=== PATIENT | female | born 1940 | race Caucasian/White ===

== ENCOUNTER 2016-06-16 18:56 | Emergency (ER) | payer MEDICARE | END 2016-06-16 21:50 | disposition home or self-care (01) | LOC: ER1 18:56 | DX: S20.212A Contusion of left front wall of thorax, initial encounter (principal); I10 Essential (primary) hypertension; E11.9 Type 2 diabetes mellitus without complications; J44.9 Chronic obstructive pulmonary disease, unspecified; Z85.3 Personal history of malignant neoplasm of breast; Z90.12 Acquired absence of left breast and nipple; Z88.8 Allergy status to other drugs, medicaments and biological substances; W17.89XA Other fall from one level to another, initial encounter | CPT/HCPCS: 71101; 99284 ==

== ENCOUNTER → 2016-07-04 | Outpatient (CLI) | payer MEDICARE ==
[2016-07-04 11:05] LABS: HEMOGLOBIN 12.1 gm/dl (12.3-15.3); RED BLOOD COUNT 3.69 M/UL (4.00-5.10); WHITE BLOOD COUNT 4.2 K/UL (4.5-11.0)
[2016-07-04 11:12] LABS: BUN/CREATININE RATIO 26 (0-10)
== END ==
LOC: LAB 10:18
PROVIDERS: Family Medicine
DX: E11.9 Type 2 diabetes mellitus without complications (principal); E78.5 Hyperlipidemia, unspecified; I10 Essential (primary) hypertension; E55.9 Vitamin D deficiency, unspecified
CPT/HCPCS: 36415; 80053; 80061; 83036; 84439; 84443; 84681; 85027

== ENCOUNTER 2020-03-09 00:46 | Observation (INO) | payer MEDICARE, OTHER ==
[~2020-03-09] VITALS: Ht 162.6 cm; Wt 108.9 kg
[~2020-03-09 00:46] MED LIST: ASPIRIN EC81 MG PO; AUGMENTIN 875-1 EACH PO; BENTYL 20MG TAB20 MG PO; BYDUREON P2 MG/0.65 SQ; CARAFATE1 GM PO; ENULOSE10 GM/15 M PO; FLONASE 0.05% N16 GM; GLUCOTROL5 MG PO; HYDROCHLOROTH12.5 M1 PO; HYDROCHLOROTHIA25 MG PO; HYDROXYZINE PAM25 MG PO; JANUVIA100 MG PO; K-DUR TAB 20 M20 MEQ PO; LASIX20 MG PO; LEVAQUIN500 MG PO; LIPITOR TAB 2020 MG PO; LIPITOR40 MG PO; LISINOPRIL20 MG PO; LISINOPRIL40 MG PO; LORATADINE10 MG PO; MACROBID 100 M100 MG PO; METFORMIN HCL1000 MG PO; MONTELUKAST SOD10 MG PO; NITROGLYCERIN0.4 MG SL; NORVASC 5 MG TAB5 MG PO; OMEPRAZOLE40 MG PO; PYRIDIUM100 MG PO; SIMVASTATIN40 MG PO; SINGULAIR10 MG PO; TESSALON PERLE100 MG PO; VENTOLIN HFA 66.7 GM INH; ZITHROMAX250 MG PO; ZOFRAN ODT 4 MG4 MG SL; ZOFRAN4 MG PO; ZYRTEC10 MG PO
[2020-03-09 02:19] LABS: HEMOGLOBIN 11.1 gm/dl (12.3-15.3); RED BLOOD COUNT 3.37 M/UL (4.00-5.10); WHITE BLOOD COUNT 5.5 K/UL (4.5-11.0)
[2020-03-09 02:52] LABS: BUN/CREATININE RATIO 19 (0-10)
[2020-03-09] MEDS ORDERED: SPIRONOLACTONE50 MG PO (10:10)
[2020-03-09] MEDS ORDERED: INDERAL TAB 1010 MG PO (10:11)
[2020-03-09] MEDS ORDERED: FUROSEMIDE40 MG PO (10:20)
[2020-03-10 06:03] LABS: RED BLOOD COUNT 2.96 M/UL (4.00-5.10); WHITE BLOOD COUNT 4.1 K/UL (4.5-11.0)
[2020-03-10] MEDS ORDERED: OMNICEF 300 MG300 MG PO (11:12)
== END 2020-03-10 16:34 | disposition home or self-care (01) ==
LOC: ER1 00:46 → CDU 05:14 → M/S 16:20
PROVIDERS: Family Medicine; Internal Medicine; ADMIT Internal Medicine
DX: I11.0 Hypertensive heart disease with heart failure (principal); I50.31 Acute diastolic (congestive) heart failure; J18.9 Pneumonia, unspecified organism; D61.818 Other pancytopenia; E11.9 Type 2 diabetes mellitus without complications; E78.5 Hyperlipidemia, unspecified; D69.6 Thrombocytopenia, unspecified; D64.9 Anemia, unspecified; E66.9 Obesity, unspecified; Z20.822 Contact with and (suspected) exposure to COVID-19
CPT/HCPCS: ECHO; 70450; 71045; 73560; 80053; 80202; 80307; 81001; 82140; 82550; 82553; 84484; 85025; 86140; 87040; 93005; 93306; 96365; 96366; 96368; 96372; 96375; 96376; 99285; G0378; J1650; J2405; J2543; J3370; J7030; J7070; U0002

== ENCOUNTER 2020-03-20 18:14 | Emergency (ER) | payer MEDICARE, OTHER ==
[~2020-03-20] VITALS: Ht 162.6 cm; Wt 98.9 kg
[~2020-03-20 18:14] MED LIST changes: +FUROSEMIDE40 MG PO; +INDERAL TAB 1010 MG PO; +OMNICEF 300 MG300 MG PO; +SPIRONOLACTONE50 MG PO
[2020-03-20 21:02] LABS: HEMOGLOBIN 10.9 gm/dl (12.3-15.3); RED BLOOD COUNT 3.28 M/UL (4.00-5.10); WHITE BLOOD COUNT 7.7 K/UL (4.5-11.0)
[2020-03-20 21:26] LABS: BUN/CREATININE RATIO 16 (0-10)
[2020-03-21] MEDS ORDERED: AZITHROMYCIN500 MG PO (07:07)
== END 2020-03-21 08:43 | disposition home or self-care (01) ==
LOC: ER1 18:14
PROVIDERS: Emergency Medicine
DX: J18.9 Pneumonia, unspecified organism (principal); J44.9 Chronic obstructive pulmonary disease, unspecified; E11.9 Type 2 diabetes mellitus without complications; Z87.19 Personal history of other diseases of the digestive system
CPT/HCPCS: 70450; 71045; 80053; 82140; 82550; 82553; 83690; 83874; 83880; 84484; 85025; 85379; 93005; 99285; Q9967

== ENCOUNTER → 2020-07-03 | Outpatient (CLI) | payer MEDICARE, OTHER ==
[~2020-07-03] MED LIST changes: +AZITHROMYCIN500 MG PO
== END ==
LOC: KOH-I 10:11
DX: M25.562 Pain in left knee (principal); M17.12 Unilateral primary osteoarthritis, left knee
CPT/HCPCS: 73564

== ENCOUNTER 2020-08-08 00:36 | Emergency (ER) | payer MEDICARE, OTHER | END 2020-08-08 00:38 | disposition left against medical advice (07) | LOC: ER1 00:36 | DX: Z53.21 Procedure and treatment not carried out due to patient leaving prior to being seen by health care provider (principal) ==

== ENCOUNTER 2020-10-01 09:25 | Emergency (ER) | payer MEDICARE, OTHER ==
[2020-10-01 11:38] LABS: HEMOGLOBIN 11.8 gm/dl (12.3-15.3); RED BLOOD COUNT 3.6 M/UL (4.00-5.10); WHITE BLOOD COUNT 2.2 K/UL (4.5-11.0)
[2020-10-01 11:51] LABS: BUN/CREATININE RATIO 12 (0-10)
== END 2020-10-01 13:46 | disposition home or self-care (01) ==
LOC: ER1 09:25
PROVIDERS: Physician Assistant
DX: S80.02XA Contusion of left knee, initial encounter (principal); U07.1 COVID-19; D61.818 Other pancytopenia; M54.5 Low back pain; E11.9 Type 2 diabetes mellitus without complications; J44.9 Chronic obstructive pulmonary disease, unspecified; W07.XXXA Fall from chair, initial encounter; Y92.009 Unspecified place in unspecified non-institutional (private) residence as the place of occurrence of the external cause
CPT/HCPCS: 0240U; 71045; 72131; 73564; 80053; 82550; 82553; 83874; 84484; 85025; 93005; 99284

== ENCOUNTER → 2020-11-01 | Emergency (ER) | payer MEDICARE, OTHER | END | disposition home or self-care (01) | LOC: ER1 00:33 | DX: S01.511A Laceration without foreign body of lip, initial encounter (principal); S09.90XA Unspecified injury of head, initial encounter; I11.0 Hypertensive heart disease with heart failure; I50.9 Heart failure, unspecified; E11.9 Type 2 diabetes mellitus without complications; E78.5 Hyperlipidemia, unspecified; F17.210 Nicotine dependence, cigarettes, uncomplicated; Z85.3 Personal history of malignant neoplasm of breast; Z87.19 Personal history of other diseases of the digestive system | CPT/HCPCS: 70450; 72125; 99283 ==

== ENCOUNTER 2021-02-11 10:51 | Emergency (ER) | payer MEDICARE, OTHER ==
[2021-02-11 12:08] LABS: HEMOGLOBIN 11.8 gm/dl (12.3-15.3); RED BLOOD COUNT 3.47 M/UL (4.00-5.10); WHITE BLOOD COUNT 4.6 K/UL (4.5-11.0)
[2021-02-11 12:59] LABS: BUN/CREATININE RATIO 14 (0-10)
== END 2021-02-11 18:21 | disposition home or self-care (01) ==
LOC: ER1 10:51
PROVIDERS: Family Medicine
DX: K74.60 Unspecified cirrhosis of liver (principal); K75.81 Nonalcoholic steatohepatitis (NASH); H91.90 Unspecified hearing loss, unspecified ear; E11.9 Type 2 diabetes mellitus without complications; I11.0 Hypertensive heart disease with heart failure; I50.31 Acute diastolic (congestive) heart failure; E78.5 Hyperlipidemia, unspecified; E66.9 Obesity, unspecified; D64.9 Anemia, unspecified; Z87.01 Personal history of pneumonia (recurrent); Z85.3 Personal history of malignant neoplasm of breast; Z88.8 Allergy status to other drugs, medicaments and biological substances
CPT/HCPCS: 80053; 80307; 81001; 82140; 85025; 99285; G0480

== ENCOUNTER 2021-07-05 12:31 | Inpatient (IN) | payer MEDICARE, OTHER ==
[~2021-07-05] VITALS: Ht 162.6 cm; Wt 96.6 kg
[~2021-07-05 12:31] MED LIST changes: +BYDUREON BCISE SQ; -BYDUREON P2 MG/0.65 SQ; +DONEPEZIL HCL5 MG PO; +IBU600 MG PO; +PROAIR HFA8.5 GM INH; +PROPRANOLOL HCL10 MG PO; +[UNRECOGNIZED DRUG - OTHER] SQ
[2021-07-05 14:40] LABS: HEMOGLOBIN 12.3 gm/dl (12.3-15.3); RED BLOOD COUNT 3.48 M/UL (4.00-5.10); WHITE BLOOD COUNT 8.9 K/UL (4.5-11.0)
[2021-07-06 06:19] LABS: HEMOGLOBIN 10.5 gm/dl (12.3-15.3); RED BLOOD COUNT 2.97 M/UL (4.00-5.10); WHITE BLOOD COUNT 7.8 K/UL (4.5-11.0)
[2021-07-07 03:29] LABS: HEMOGLOBIN 9.9 gm/dl (12.3-15.3); RED BLOOD COUNT 2.82 M/UL (4.00-5.10)
[2021-07-07 03:32] LABS: WHITE BLOOD COUNT 5.6 K/UL (4.5-11.0)
[2021-07-08 01:29] LABS: ADENOVIRUS F 40/41 Not Detected (Negative); ASTROVIRUS Not Detected (Negative); CAMPYLOBACTER Not Detected (Negative); CRYPTOSPORIDIUM Not Detected (Negative); E.COLI 0157 Not Detected (Negative); ENTAMOEBA HISTOLYTICA Not Detected (Negative); ENTEROAGGREGATIVE E.COLI (EAEC Not Detected (Negative); ENTEROPATHOGENIC E.COLI (EPEC) Not Detected (Negative); ENTEROTOXIGENIC E.COLI (ETEC) Not Detected (Negative); GIARDIA LAMBLIA Not Detected (Negative); NOROVIRUS GI/GII Not Detected (Negative); PLESIOMONAS SHIGELLOIDES Not Detected (Negative); ROTOVIRUS A Not Detected (Negative); SALMONELLA Not Detected (Negative); SAPOVIRUS Not Detected (Negative); SHIG/ENTEROINVAS.ECOLI (EIEC) Not Detected (Negative); SHIGA-LIK TOX.PRO.E.COLI (STEC Not Detected (Negative); VIBRIO Not Detected (Negative); VIBRIO CHOLERAE Not Detected (Negative); YERSINIA ENTEROCOLITICA Not Detected (Negative)
[2021-07-08 04:20] LABS: HEMOGLOBIN 9.3 gm/dl (12.3-15.3); RED BLOOD COUNT 2.63 M/UL (4.00-5.10)
[2021-07-08 04:21] LABS: WHITE BLOOD COUNT 3.5 K/UL (4.5-11.0)
--- NOTE | 2021-07-08 08:59 | NUR ---
DR. GUTIERREZ on the floor reported all labs and result of ultrasound of the kidneys. acknowledged
--- NOTE | 2021-07-09 05:29 | NUR ---
Patient legal german Rodgers called for updates. She stated that if patient was discharged she would need to be transported via EMS.
[2021-07-09 06:44] LABS: HEMOGLOBIN 8.8 gm/dl (12.3-15.3); RED BLOOD COUNT 2.5 M/UL (4.00-5.10)
--- NOTE | 2021-07-10 00:19 | NUR ---
Late Entry 07/09/20212117: Legal German called to check on patient, updates provided to legal german. No concerns voiced at this time.
[2021-07-10 06:37] LABS: HEMOGLOBIN 8.9 gm/dl (12.3-15.3); RED BLOOD COUNT 2.49 M/UL (4.00-5.10); WHITE BLOOD COUNT 2.8 K/UL (4.5-11.0)
[2021-07-10] MEDS ORDERED: LEVOFLOXACIN500 MG PO (09:52)
[2021-07-10] MEDS ORDERED: XIFAXAN 550 MG550 MG PO (09:52)
--- NOTE | 2021-07-10 12:28 | NUR ---
report given to admitting nurse richard
--- NOTE | 2021-07-10 19:42 | NUR ---
Attempted to contact EMS for ETA for patient transport, no answer at this time.
--- NOTE | 2021-07-10 22:57 | NUR ---
Late Entry 1954: EMS [place] stated ETA of 30 minutes. Late Entry 2044: EMS [place]- [place] notified that EMS [facility] was backed up and unsure when they could transport patient. Ask to contact [facility]. Late Entry 2049: [facility] contacted, unable to transport patient. Corporate Sales Trainer notified, request to call [facility] back and await transport when available. Late Entry 2104: Spoke with EMS [facility] Captain Christian to transport patient due to [facility] unavailable, unable to give ETA but will transport when available. Late Entry 2107: Meg Denis, Legal Gaurdian notified of transportation issues at this time. Verbalized agreement and understanding, stated to call and notify her when patient is being transported. Meg is aware that at this time we do not have a ETA for EMS. No concerns voiced.
[2021-07-11 04:00] LABS: RED BLOOD COUNT 2.55 M/UL (4.00-5.10)
[2021-07-11 04:02] LABS: WHITE BLOOD COUNT 3.8 K/UL (4.5-11.0)
--- NOTE | 2021-07-11 04:30 | NUR ---
Spoke with Meg Rodgers, Legal Guardian, gave update, EMS not arrived at this time. No concerns voiced, voiced understanding.
--- NOTE | 2021-07-11 08:47 | NUR ---
EMS was awaiting and ready to transport patient unable to give po meds. patient awake and alert.
== END 2021-07-11 08:45 | disposition home health service (06) | DRG 432 ==
LOC: ER1 12:31 → CDU 17:52 → M/S 17:52
PROVIDERS: Emergency Medicine; Internal Medicine; Physician Assistant; ADMIT Internal Medicine
PROC: 30233R1 Transfusion of Nonautologous Platelets into Peripheral Vein, Percutaneous Approach (ICD-10-PCS; principal; 2021-07-05)
PROC: 0DJ Gastrointestinal System, Inspection (ICD-10-PCS; 2021-07-09)
DX: K74.60 Unspecified cirrhosis of liver (principal); G93.41 Metabolic encephalopathy; N17.9 Acute kidney failure, unspecified; K76.6 Portal hypertension; R18.8 Other ascites; I13.0 Hypertensive heart and chronic kidney disease with heart failure and stage 1 through stage 4 chronic kidney disease, or unspecified chronic kidney disease; E87.2 Acidosis; K75.81 Nonalcoholic steatohepatitis (NASH); K72.90 Hepatic failure, unspecified without coma; D69.6 Thrombocytopenia, unspecified; F03.90 Unspecified dementia, unspecified severity, without behavioral disturbance, psychotic disturbance, mood disturbance, and anxiety; E66.9 Obesity, unspecified; Z20.822 Contact with and (suspected) exposure to COVID-19; E11.22 Type 2 diabetes mellitus with diabetic chronic kidney disease; H91.90 Unspecified hearing loss, unspecified ear; D64.9 Anemia, unspecified; N18.30 Chronic kidney disease, stage 3 unspecified; E11.65 Type 2 diabetes mellitus with hyperglycemia; K62.89 Other specified diseases of anus and rectum; E78.5 Hyperlipidemia, unspecified; F17.210 Nicotine dependence, cigarettes, uncomplicated; K52.9 Noninfective gastroenteritis and colitis, unspecified; Z79.899 Other long term (current) drug therapy; Z90.10 Acquired absence of unspecified breast and nipple; Z88.8 Allergy status to other drugs, medicaments and biological substances; Z68.36 Body mass index [BMI] 36.0-36.9, adult
CPT/HCPCS: 36415; 71045; 80048; 80053; 81001; 82140; 82436; 82550; 82553; 82570; 82962; 83540; 83550; 83605; 83690; 83735; 83880; 84100; 84133; 84156; 84300; 84439; 84443; 84484; 85025; 85027; 85610; 85730; 86140; 86850; 86900; 86901; 87086; 87507; 93005; 94640; 94664; 94760; 97110; 97110-GP-CQ; 97161; 97530-GP-CQ; 99285; A6212; J1335; J7030; P9047; U0002